=== PATIENT | female | born 2005 | race Caucasian/White ===

== ENCOUNTER 2023-01-21 16:55 | Emergency (ER) | payer MEDICAID, OTHER ==
[~2023-01-21] VITALS: Ht 160 cm; Wt 86.0 kg
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
[2023-01-21 17:45] VITALS: BP 116/74
[2023-01-21] MEDS ORDERED: PNV-9 PO (18:46)
== END 2023-01-21 17:47 | disposition home or self-care (01) ==
LOC: ER 17:00
DX: O9A.212 Injury, poisoning and certain other consequences of external causes complicating pregnancy, second trimester (principal); Z04.3 Encounter for examination and observation following other accident; Z3A.27 27 weeks gestation of pregnancy; V49.50XA Passenger injured in collision with unspecified motor vehicles in traffic accident, initial encounter; Y92.410 Unspecified street and highway as the place of occurrence of the external cause
CPT/HCPCS: 99281

== ENCOUNTER 2023-01-21 17:54 | Outpatient (CLI) | payer MEDICAID ==
[~2023-01-21] VITALS: Ht 161 cm; Wt 86.9 kg
[2023-01-21 18:05] VITALS: BP 134/83
[2023-01-21 18:40] VITALS: BP 111/64
[2023-01-21] MEDS ORDERED: PNV-9 PO (18:46)
[2023-01-21 19:10] VITALS: BP 116/61
[2023-01-21 19:25] VITALS: BP 116/68
== END 2023-01-21 20:14 | disposition home or self-care (01) ==
LOC: WSo 17:54 → LDRP 17:54 → WSo 20:14
PROVIDERS: ATTEND Family Medicine
DX: Z34.92 Encounter for supervision of normal pregnancy, unspecified, second trimester (principal); Z3A.27 27 weeks gestation of pregnancy
CPT/HCPCS: 99213

== ENCOUNTER 2023-04-19 15:17 | Inpatient (IN) | payer MEDICAID ==
[~2023-04-19] VITALS: Ht 162.5 cm; Wt 91.1 kg
[2023-04-19] VITALS (39 sets, daily range): BP systolic 90–139; BP diastolic 49–92
[~2023-04-19 15:17] MED LIST: PNV-9 PO
[2023-04-19 15:54] LABS: BILIRUBIN,URINE NEGATIVE (NEGATIVE); CLARITY,URINE CLEAR; COLOR,URINE YELLOW; GLUCOSE, URINE (UA) NEGATIVE (NEGATIVE); KETONES,URINE NEGATIVE (NEGATIVE); NITRITE,URINE NEGATIVE (NEGATIVE); PH,URINE 7.5 (5-9); PROTEIN,URINE NEGATIVE (NEGATIVE)
[2023-04-19 15:55] LABS: BACTERIA,URINE FEW /HPF; LEUKOCYTE ESTERASE ,URINE 1+ (NEGATIVE); RBC,URINE 0-2 /HPF; SQUAMOUS EPITHELIAL CELL,UR 25-50 /HPF
[2023-04-19] MEDS ORDERED: LACTATED RINGERS 1,000 ML 500 ML IV PRN (16:30)
[2023-04-19] MEDS ORDERED: MINERAL OIL 30 ML UDC TOP PRN (16:30)
[2023-04-19 16:33] LABS: BASOPHILS % (AUTO) 0 % (0-10); EOSINOPHILS % (AUTO) 0 % (0-10); HEMATOCRIT 38 % (35-52); HEMOGLOBIN 12.6 g/dL (11.5-16.0); LYMPHOCYTES # (AUTO) 1.5 10^3/uL (1.0-4.0); LYMPHOCYTES % (AUTO) 13 % (12-44); MEAN CORPUSCULAR HEMOGLOBIN 28 pg (25-34); MEAN CORPUSCULAR HGB CONC 33 g/dL (32-36); MEAN CORPUSCULAR VOLUME 84 fL (80-99); MEAN PLATELET VOLUME 9.9 fL (9.0-12.2); MONOCYTES # (AUTO) 0.8 10^3/uL (0.0-1.0); MONOCYTES % (AUTO) 7 % (0-12); NEUTROPHILS # (AUTO) 9.2 10^3/uL (1.8-7.8); NEUTROPHILS % (AUTO) 78 % (42-75); PLATELET COUNT 277 10^3/uL (130-400); WHITE BLOOD COUNT 11.7 10^3/uL (4.3-11.0)
[2023-04-19] MEDS ORDERED: fentaNYL 2 mcg/ml BUPIVA 0.125 100 ML ONE (16:52)
[2023-04-19] MEDS ORDERED: fentaNYL INJECTION 100 MCG/2 ML VIAL ONE (17:18)
[2023-04-19] MEDS ORDERED: BUPIVACAINE 0.25% 10 ML VIAL ONE (17:18)
[2023-04-19] MEDS: D5 LR 1,000 ML IV SOLN 1,000 ML IV SCH (17:21)
[2023-04-19] MEDS ORDERED: fentaNYL 2 mcg/ml BUPIVA 0.125 100 ML EPI SCH (18:00)
[2023-04-19] MEDS ORDERED: NALOXONE 0.4 MG/ML 1 ML VIAL IV PRN (18:00)
[2023-04-19] MEDS ORDERED: fentaNYL INJECTION 100 MCG/2 ML VIAL INJ ONE (18:00)
[2023-04-19] MEDS ORDERED: LACTATED RINGERS 1,000 ML 1,000 ML IV ONE ×2 (18:00)
[2023-04-19] MEDS ORDERED: ONDANSETRON INJECTION 4 MG/2 ML (SDV) IV PRN (18:00)
[2023-04-19] MEDS ORDERED: FLU QUADRIvalent (6 months+) 60 mcg/0.5 ml 2023-2024 (FLUARIX) IM ONE (18:15)
--- NOTE | 2023-04-19 18:45 | History & Physical-OB/GYN ---
SAMIRA JUAREZ 04/19[birth year]23 1845: OB - Chief Complaint & HPI Date/Time Date of Admission: Date of Admission: Apr 19, 2023 at 16:19 Time Seen by a Provider: 18:15 Chief Complaint/History OB-Reason for Admission/Chief: Onset of Labor Hx : 1 Hx Para: 0 Hx Last Menstrual Period: 07/14/22 Expected Date of Delivery: Apr 20, 2023 Gestational Age in Weeks: 39 Gestational Age in Days: 6 Allergies and Home Medications Allergies Coded Allergies: peach (Verified Allergy, Unknown, 01/21/23) Patient Home Medication List Home Medication List Reviewed: Yes Pnv 119/Iron Fum/Folic Acid ( 19 Tablet) 29 Mg Iron-1 Mg Tablet, 1 EACH PO, (Reported) Entered as Reported by: GRAEME GILES on 01/21/231845 OB - History Hx of Present Care: Yes Ultrasounds: Normal mid trimester US Obstetrical Complications: Other (Oligoghydramnios in 2nd trimester. Resolved.) Medical Complications: None Information Induced Hypertension: No Maternal Gestational Diabetes: No Hemorrhage: No Obstetrical History Hx : 1 Hx Para: 0 Hx # Term Pregnancies: 1 Hx Termination: No Hx Multiple Gestation: No Hx Ectopic : No Hx Stillbirth: No Hx Complication: No Hx Induced Hypertens: No Hx Maternal Gestational Diabet: No Hx Hemorrhage: No Delivery History Hx Dystocia: No Hx Forceps Assisted Delivery: No Hx Vacuum Extraction Assisted: No Hx Placenta Abnormality: No Hx Distress: No Hx Large For Gestational Age I: No Hx Small for Gestational Age I: No Hx Section: No Hx Vaginal Delivery Post C-Sec: No Hx Blood Disorders: No Adverse Rxn to Tranfusion: No Patient Past Medical History none Social History/Family History Alcohol Use: Denies Use Recreational Drug Use: No Smoking Cessation: Former smoker Immunizations Influenza Vaccine Up-to-Date: No; Not Current First/Initial COVID19 Vaccine: YES Second COVID19 Vaccination: YES Hepatitis A: Yes Hepatitis B: Yes Tetanus Booster (TDap): Less than 5yrs Rubella: not immune RPR/VDRL: Negative GBS Status: Negative HBsAG: Negative OB - Admission Exam Physical Exam Vitals: Vital Signs 04/19/23 04/19/23 04/19/23 15:40 17:42 17:45 Temp 36.5 Pulse 111 Resp 18 B/P (MAP) 103/62 (76) Pulse Ox 98 O2 Delivery Room Air Heart: Rhythm Normal Lungs: Clear Abdomen: Gravid Extremities: Other (1+ LE) Reflexes: Normal Cervical Dilatation: 6cm Effacement: 75% Station: -2 Membranes: Intact Heart Rate: 140's Accelerations: No Accelerations Decelerations: Variable Decelerations (1 variable deceleration noted) Short Term Variability: Present Half-Way Variability: Average (6-25) Contractions on Admission: < 5 Minutes Apart Date/Time Contractions Began;: 04/18/23 Intensity: Moderate Zambrano Scoring Tool (Modified) Dilation (cm): >5cm (3) Effacement (%): 80-100% (3) Descent/Station: -2 (1) Cervix Consistency: Soft (2) Cervix Position: Middle/Mid-Position (1) Labs Laboratory Tests Test 04/19/23 15:30 04/19/23 16:10 Range/Units Urine Color YELLOW Urine Clarity CLEAR Urine pH 7.5 5-9 Urine Specific [place] 1.020 1.016-1.022 Urine Protein NEGATIVE NEGATIVE Urine Glucose (UA) NEGATIVE NEGATIVE Urine Ketones NEGATIVE NEGATIVE Urine Nitrite NEGATIVE NEGATIVE Urine Bilirubin NEGATIVE NEGATIVE Urine Urobilinogen 0.2 < = 1.0 MG/DL Urine Leukocyte Esterase 1+ H NEGATIVE Urine RBC (Auto) TRACE H NEGATIVE Urine RBC 0-2 /HPF Urine WBC 5-10 H /HPF Urine Squamous Epithelial Cells 25-50 H /HPF Urine Crystals NONE /LPF Urine Bacteria FEW H /HPF Urine Casts NONE /LPF Urine Mucus SMALL H /LPF Urine Culture Indicated YES White Blood Count 11.7 H 4.3-11.0 10^3/uL Red Blood Count 4.49 3.80-5.11 10^6/uL Hemoglobin 12.6 11.5-16.0 g/dL Hematocrit 38 35-52 % Mean Corpuscular Volume 84 80-99 fL Mean Corpuscular Hemoglobin 28 25-34 pg Mean Corpuscular Hemoglobin Concent 33 32-36 g/dL Red Cell Distribution Width 13.2 10.0-14.5 % Platelet Count 277 130-400 10^3/uL Mean Platelet Volume 9.9 9.0-12.2 fL Immature Granulocyte % (Auto) 1 % Neutrophils (%) (Auto) 78 H 42-75 % Lymphocytes (%) (Auto) 13 12-44 % Monocytes (%) (Auto) 7 0-12 % Eosinophils (%) (Auto) 0 0-10 % Basophils (%) (Auto) 0 0-10 % Neutrophils # (Auto) 9.2 H 1.8-7.8 10^3/uL Lymphocytes # (Auto) 1.5 1.0-4.0 10^3/uL Monocytes # (Auto) 0.8 0.0-1.0 10^3/uL Eosinophils # (Auto) 0.0 0.0-0.3 10^3/uL Basophils # (Auto) 0.0 0.0-0.1 10^3/uL Immature Granulocyte # (Auto) 0.1 0.0-0.1 10^3/uL Syphilis Total Antibody Negative Negative OB - Assessment/Plan/Diagnosis Assessment Assessment: active labor Admission Dx Active labor Admission Status: Inpatient Order (span 2 midnights) Reason for Inpatient Admission: Active labor Plan Plan: Expectant Management JUSTIN GOEL MD 04/19/233: Allergies and Home Medications Allergies Coded Allergies: peach (Verified Allergy, Unknown, 01/21/23) Patient Home Medication List Pnv 119/Iron Fum/Folic Acid ( 19 Tablet) 29 Mg Iron-1 Mg Tablet, 1 EACH PO, (Reported) Entered as Reported by: GRAEME GILES on 01/21/23 1846 Supervisory-Addendum Brief Verification & Attestation Participated in pt care: history, MDM, physical Personally performed: exam, history, MDM, supervision of care Care discussed with: Medical Student Procedures: n/a Results interpretation: Verified all documentation I personally performed or re-performed the history, physical exam and treatment for the E/M. I discussed the case with the Medical Student, and concur with the Medical Student documentation of history, physical exam and treatment plan unless otherwise noted. SAMIRA JUAREZ Apr 19, 2023 18:45 JUSTIN GOEL MD Apr 19, 2023 19:13
--- NOTE | 2023-04-19 19:23 | Labor Progress Note ---
Labor Progress Note Labor Progress Note Date Seen by Provider: Apr 19, 2023 Time Seen by Provider: 19:21 Subjective: Pt denies complaints. Objective: Cervical exam: / Consistency: soft Position: anterior Presentation: vertex heart tones: 140 beats per minute, moderate variability, reactive Tocometer: 4 ctx/10 minutes Assessment/Plan: Diogenes Burks is a 18 /Para 1 / 0,Gestational Age (wks)39 here for labor. AROM done at time of exam per patient request. CEFM/TOCO Anesthesia: epidural Anticipate vaginal delivery. Vitals - Labs Vital Signs - I&O Vital Signs Date Time Temp Pulse Resp B/P (MAP) Pulse Ox O2 Delivery O2 Flow Rate FiO2 04/19/23 18:38 90 18 90/49 (63) 93 Room Air 04/19/23 18:35 79 18 93/50 (64) 100 Room Air 04/19/23 18:30 88 18 99/62 (74) 99 Room Air 04/19/23 18:13 84 18 135/62 (86) Room Air 04/19/23 18:10 86 18 139/79 (99) 98 Room Air 04/19/23 18:06 82 18 122/76 (91) 98 Room Air 04/19/23 18:03 82 18 124/73 (90) 97 Room Air 04/19/23 18:00 93 18 123/71 (88) 97 Room Air 04/19/23 17:57 71 18 122/67 (85) Room Air 04/19/23 17:54 115 18 126/74 (91) Room Air 04/19/23 17:51 108 18 106/71 (83) 97 Room Air 04/19/23 17:48 101 18 111/71 (84) Room Air 04/19/23 17:45 111 18 103/62 (76) Room Air 04/19/23 17:42 81 18 134/77 (96) 98 Room Air 04/19/23 17:39 84 18 119/73 (88) 98 Room Air 04/19/23 17:36 78 18 125/75 (92) 100 Room Air 04/19/23 17:33 92 18 124/77 (93) 100 Room Air 04/19/23 15:40 36.5 86 18 98 Room Air Labs Laboratory Tests 04/19/23 15:30: Urine Color YELLOW, Urine Clarity CLEAR, Urine pH 7.5, Urine Specific [place] 1.020, Urine Protein NEGATIVE, Urine Glucose (UA) NEGATIVE, Urine Ketones NEGATIVE, Urine Nitrite NEGATIVE, Urine Bilirubin NEGATIVE, Urine Urobilinogen 0.2, Urine Leukocyte Esterase 1+H, Urine RBC (Auto) TRACEH, Urine RBC 0-2, Urine WBC 5-10H, Urine Squamous Epithelial Cells 25-50H, Urine Crystals NONE, Urine Bacteria FEWH, Urine Casts NONE, Urine Mucus SMALLH, Urine Culture Indicated YES 04/19/23 16:10: White Blood Count 11.7H, Red Blood Count 4.49, Hemoglobin 12.6, Hematocrit 38, Mean Corpuscular Volume 84, Mean Corpuscular Hemoglobin 28, Mean Corpuscular Hemoglobin Concent 33, Red Cell Distribution Width 13.2, Platelet Count 277, Mean Platelet Volume 9.9, Immature Granulocyte % (Auto) 1, Neutrophils (%) (Auto) 78H, Lymphocytes (%) (Auto) 13, Monocytes (%) (Auto) 7, Eosinophils (%) (Auto) 0, Basophils (%) (Auto) 0, Neutrophils # (Auto) 9.2H, Lymphocytes # (Auto) 1.5, Monocytes # (Auto) 0.8, Eosinophils # (Auto) 0.0, Basophils # (Auto) 0.0, Immature Granulocyte # (Auto) 0.1, Syphilis Total Antibody Negative JUSTIN GOEL MD Apr 19, 2023 19:23
[2023-04-19] MEDS: OXYTOCIN DRIP PRE-MIX 500 ML IV SCH (21:59)
[2023-04-19] MEDS ORDERED: CATHETER FLUSH 10 ML SYR IV SCH (22:00)
[2023-04-20] VITALS (18 sets, daily range): BP systolic 118–158; BP diastolic 63–112
--- NOTE | 2023-04-20 00:06 | Labor Progress Note ---
Labor Progress Note Labor Progress Note Date Seen by Provider: Apr 20, 2023 Time Seen by Provider: 23:55 Subjective: Pt denies complaints. Feeling pressure but not pain with contractions. Objective: Cervical exam: anterior rim/100/0 Consistency: soft Position: anterior Presentation: vertex heart tones: 140s beats per minute, moderate variability, reactive Tocometer: 4-5 ctx/10 minutes Assessment/Plan: Diogenes Burks is a (18 /Para 1 / 0,Gestational Age (wks)39 here for labor. CEFM/TOCO Continue pitocin Anesthesia: epidural Anticipate vaginal delivery. Vitals - Labs Vital Signs - I&O Vital Signs Date Time Temp Pulse Resp B/P (MAP) Pulse Ox O2 Delivery O2 Flow Rate FiO2 04/19/23 23:15 97 18 122/75 (91) Room Air 04/19/23 23:00 88 18 117/73 (88) Room Air 04/19/23 22:45 36.6 116 18 129/77 (94) Room Air 04/19/23 22:30 97 18 129/77 (94) Room Air 04/19/23 22:15 92 18 121/77 (92) Room Air 04/19/23 22:00 106 18 125/87 (100) Room Air 04/19/23 21:30 80 18 134/92 (106) Room Air 04/19/23 21:15 92 18 133/63 (86) Room Air 04/19/23 21:00 80 18 134/85 (101) Room Air 04/19/23 20:45 99 18 133/61 (85) Room Air 04/19/23 20:30 82 18 124/77 (93) Room Air 04/19/23 20:15 75 18 132/88 (103) Room Air 04/19/23 20:00 80 18 123/72 (89) Room Air 04/19/23 19:45 82 18 120/75 (90) Room Air 04/19/23 19:30 84 18 117/70 (86) Room Air 04/19/23 19:20 36.5 84 18 119/73 (88) Room Air 04/19/23 19:00 88 18 111/67 (82) 94 Room Air 04/19/23 18:55 90 18 108/51 (70) 98 Room Air 04/19/23 18:45 97 18 99/58 (72) 100 Room Air 04/19/23 18:40 35.7 04/19/23 18:38 90 18 90/49 (63) 93 Room Air 04/19/23 18:35 79 18 93/50 (64) 100 Room Air 04/19/23 18:30 88 18 99/62 (74) 99 Room Air 04/19/23 18:13 84 18 135/62 (86) Room Air 04/19/23 18:10 86 18 139/79 (99) 98 Room Air 04/19/23 18:06 82 18 122/76 (91) 98 Room Air 04/19/23 18:03 82 18 124/73 (90) 97 Room Air 04/19/23 18:00 93 18 123/71 (88) 97 Room Air 04/19/23 17:57 71 18 122/67 (85) Room Air 04/19/23 17:54 115 18 126/74 (91) Room Air 04/19/23 17:51 108 18 106/71 (83) 97 Room Air 04/19/23 17:48 101 18 111/71 (84) Room Air 04/19/23 17:45 111 18 103/62 (76) Room Air 04/19/23 17:42 81 18 134/77 (96) 98 Room Air 04/19/23 17:39 84 18 119/73 (88) 98 Room Air 04/19/23 17:36 78 18 125/75 (92) 100 Room Air 04/19/23 17:33 92 18 124/77 (93) 100 Room Air 04/19/23 15:40 36.5 86 18 98 Room Air I & O 04/20/23 06:59 Intake Total 1000 ml Balance 1000 ml Labs Laboratory Tests 04/19/23 15:30: Urine Color YELLOW, Urine Clarity CLEAR, Urine pH 7.5, Urine Specific [place] 1.020, Urine Protein NEGATIVE, Urine Glucose (UA) NEGATIVE, Urine Ketones N EGATIVE, Urine Nitrite NEGATIVE, Urine Bilirubin NEGATIVE, Urine Urobilinogen 0.2, Urine Leukocyte Esterase 1+H, Urine RBC (Auto) TRACEH, Urine RBC 0-2, Urine WBC 5-10H, Urine Squamous Epithelial Cells 25-50H, Urine Crystals NONE, Urine Bacteria FEWH, Urine Casts NONE, Urine Mucus SMALLH, Urine Culture Indicated YES 04/19/23 16:10: White Blood Count 11.7H, Red Blood Count 4.49, Hemoglobin 12.6, Hematocrit 38, Mean Corpuscular Volume 84, Mean Corpuscular Hemoglobin 28, Mean Corpuscular Hem oglobin Concent 33, Red Cell Distribution Width 13.2, Platelet Count 277, Mean Platelet Volume 9.9, Immature Granulocyte % (Auto) 1, Neutrophils (%) (Auto) 78H , Lymphocytes (%) (Auto) 13, Monocytes (%) (Auto) 7, Eosinophils (%) (Auto) 0, Basophils (%) (Auto) 0, Neutrophils # (Auto) 9.2H, Lymphocytes # (Auto) 1.5, Monocytes # (Auto) 0.8, Eosinophils # (Auto) 0.0, Basophils # (Auto) 0.0, Immature Granulocyte # (Auto) 0.1, Syphilis Total Antibody Negative JUSTIN GOEL MD Apr 20, 2023 00:06
[2023-04-20] MEDS ORDERED: LIDOCAINE 2% w/EPI 1:200,000 20 ML VIAL ONE (00:51)
[2023-04-20] MEDS: D5 LR 1,000 ML IV SOLN 1,000 ML IV SCH (01:25)
[2023-04-20] MEDS: OXYTOCIN DRIP PRE-MIX 500 ML IV SCH ×3 (01:56→02:25)
[2023-04-20] MEDS ORDERED: MEASLES, MUMPS, RUBELLA VACCINE (MMR) SQ ONE (03:30)
[2023-04-20] MEDS ORDERED: WITCH HAZEL(TUCKS) 40 EA JAR TOP PRN (03:30)
[2023-04-20] MEDS ORDERED: BENZOCAINE/MENTHOL (DERMOPLAST) 56 ML CAN TP PRN (03:30)
--- NOTE | 2023-04-20 03:35 | OB Labor & Delivery Record ---
Vag Delivery Note Vag Delivery Note Date of Delivery: 04/20/23 Preoperative Diagnosis: Diogenes Burks is a (18 /Para 1 / 0,Gestational Age (wks)39with 6 days Postoperative Diagnosis: Same Surgeon/Physician: JUSTIN GOEL [employer] Se[employer] Clerk: Ray Garcia, MS4 Anesthesia: Epidural Delivery Type: Findings: Viable female infant, apgars 2/5/7, weight 6#15 Lacerations: bilateral periurethral, first degree perineal Intact placenta with 3 vessel cord. Nuchal cord x 1, reduced. No body cord or shoulder dystocia Estimated Blood Loss: 150 ml Complications: None Condition: Stable Description of Procedure: The patient is a 18 year old female who presented in active labor. She was admitted and informed consent was obtained. Her labor course was remarkable for augmentation with pitocin. She progressed to complete dilatation and began to push. She was then set up for delivery. The 's head was delivered atraumatically in the HATTIE position. The shoulders and remainder of the 's body were then delivered without difficulty. Upon delivery, the infant was not vigorous so cord was doubly clamped and cut and the infant was handed off to nursery staff. An intact placenta with 3-vessel cord delivered via Fl[place]in and there was found to be minimal bleeding.~ Vigorous fundal massage was performed and the fundus was found to be firm. IV oxytocin was given. Examination of the vagina and perineum revealed a bilateral periurethral laceration and first degree perineal laceration repaired in the usual fashion with 3-0 vicryl rapide suture. Following the repair, sponge, instrument and needle counts were correct. Mom and baby were both in stable condition in the labor suite. Vitals - Labs Vital Signs - I&O Vital Signs Date Time Temp Pulse Resp B/P (MAP) Pulse Ox O2 Delivery O2 Flow Rate FiO2 04/20/23 00:00 90 18 132/88 (103) Room Air 04/19/23 23:45 85 18 126/85 (99) Room Air 04/19/23 23:30 93 18 101/65 (77) Room Air 04/19/23 23:15 97 18 122/75 (91) Room Air 04/19/23 23:00 88 18 117/73 (88) Room Air 04/19/23 22:45 36.6 116 18 129/77 (94) Room Air 04/19/23 22:30 97 18 129/77 (94) Room Air 04/19/23 22:15 92 18 121/77 (92) Room Air 04/19/23 22:00 106 18 125/87 (100) Room Air 04/19/23 21:30 80 18 134/92 (106) Room Air 04/19/23 21:15 92 18 133/63 (86) Room Air 04/19/23 21:00 80 18 134/85 (101) Room Air 04/19/23 20:45 99 18 133/61 (85) Room Air 04/19/23 20:30 82 18 124/77 (93) Room Air 04/19/23 20:15 75 18 132/88 (103) Room Air 04/19/23 20:00 80 18 123/72 (89) Room Air 04/19/23 19:45 82 18 120/75 (90) Room Air 04/19/23 19:30 84 18 117/70 (86) Room Air 04/19/23 19:20 36.5 84 18 119/73 (88) Room Air 04/19/23 19:00 88 18 111/67 (82) 94 Room Air 04/19/23 18:55 90 18 108/51 (70) 98 Room Air 04/19/23 18:45 97 18 99/58 (72) 100 Room Air 04/19/23 18:40 35.7 04/19/23 18:38 90 18 90/49 (63) 93 Room Air 04/19/23 18:35 79 18 93/50 (64) 100 Room Air 04/19/23 18:30 88 18 99/62 (74) 99 Room Air 04/19/23 18:13 84 18 135/62 (86) Room Air 04/19/23 18:10 86 18 139/79 (99) 98 Room Air 04/19/23 18:06 82 18 122/76 (91) 98 Room Air 04/19/23 18:03 82 18 124/73 (90) 97 Room Air 04/19/23 18:00 93 18 123/71 (88) 97 Room Air 04/19/23 17:57 71 18 122/67 (85) Room Air 04/19/23 17:54 115 18 126/74 (91) Room Air 04/19/23 17:51 108 18 106/71 (83) 97 Room Air 04/19/23 17:48 101 18 111/71 (84) Room Air 04/19/23 17:45 111 18 103/62 (76) Room Air 04/19/23 17:42 81 18 134/77 (96) 98 Room Air 04/19/23 17:39 84 18 119/73 (88) 98 Room Air 04/19/23 17:36 78 18 125/75 (92) 100 Room Air 04/19/23 17:33 92 18 124/77 (93) 100 Room Air 04/19/23 15:40 36.5 86 18 98 Room Air I & O 04/20/23 06:59 Intake Total 1000 ml Output Total 0 ml Balance 1000 ml Labs Laboratory Tests 04/19/23 15:30: Urine Color YELLOW, Urine Clarity CLEAR, Urine pH 7.5, Urine Specific [place] 1.020, Urine Protein NEGATIVE, Urine Glucose (UA) NEGATIVE, Urine Ketones NEGATIVE, Urine Nitrite NEGATIVE, Urine Bilirubin NEGATIVE, Urine Urobilinogen 0.2, Urine Leukocyte Esterase 1+H, Urine RBC (Auto) TRACEH, Urine RBC 0-2, Urine WBC 5-10H, Urine Squamous Epithelial Cells 25-50H, Urine Crystals NONE, Urine Bacteria FEWH, Urine Casts NONE, Urine Mucus SMALLH, Urine Culture Indicated YES 04/19/23 16:10: White Blood Count 11.7H, Red Blood Count 4.49, Hemoglobin 12.6, Hematocrit 38, Mean Corpuscular Volume 84, Mean Corpuscular Hemoglobin 28, Mean Corpuscular Hemoglobin Concent 33, Red Cell Distribution Width 13.2, Platelet Count 277, Mean Platelet Volume 9.9, Immature Granulocyte % (Auto) 1, Neutrophils (%) (Auto) 78H, Lymphocytes (%) (Auto) 13, Monocytes (%) (Auto) 7, Eosinophils (%) (Auto) 0, Basophils (%) (Auto) 0, Neutrophils # (Auto) 9.2H, Lymphocytes # (Auto) 1.5, Monocytes # (Auto) 0.8, Eosinophils # (Auto) 0.0, Basophils # (Auto) 0.0, Immature Granulocyte # (Auto) 0.1, Syphilis Total Antibody Negative JUSTIN GOEL MD Apr 20, 2023 03:35
[2023-04-20] MEDS: ACETAMINOPHEN 500 MG TABLET PO SCH ×3 (04:21→21:02)
[2023-04-20] MEDS: IBUPROFEN 600 MG TABLET PO SCH ×4 (04:21→21:47)
[2023-04-20] MEDS ORDERED: CATHETER FLUSH 10 ML SYR IV SCH (06:00)
--- NOTE | 2023-04-20 07:35 | Anesthesia-Regional Post-Op ---
Regional Patient Condition Mental Status: Alert, Oriented x3 Circulation: Same as Pre-Op Headache: Absent Sensation: Full Recovery Motor Block: Absent Post Op Complications Complications None Follow Up Care/Instructions Patient Instructions None needed. Anesthesia/Patient Condition Patient is doing well, no complaints, stable vital signs, no apparent adverse anesthesia problems. No complications reported per nursing. D/C home per [facility] Criteria: Yes AMY STEWART CRNA Apr 20, 2023 07:35
[2023-04-20] MEDS: DOCUSATE SODIUM 100 MG CAPSULE PO SCH ×2 (10:07→21:00)
[2023-04-20] MEDS ORDERED: MEASLES, MUMPS, RUBELLA VACCINE (MMR) ONE (21:49)
[2023-04-20] MEDS ORDERED: FLU QUADRIvalent (6 months+) 60 mcg/0.5 ml 2023-2024 (FLUARIX) IM ONE (21:49)
[2023-04-21 00:10] VITALS: BP 113/65
[2023-04-21] MEDS: IBUPROFEN 600 MG TABLET PO SCH ×2 (04:06→10:39)
[2023-04-21 04:07] VITALS: BP 117/66
[2023-04-21] MEDS: ACETAMINOPHEN 500 MG TABLET PO SCH (05:02)
[2023-04-21 05:50] LABS: BASOPHILS % (AUTO) 0 % (0-10); EOSINOPHILS # (AUTO) 0.1 10^3/uL (0.0-0.3); EOSINOPHILS % (AUTO) 1 % (0-10); HEMATOCRIT 33 % (35-52); HEMOGLOBIN 10.7 g/dL (11.5-16.0); LYMPHOCYTES # (AUTO) 2.2 10^3/uL (1.0-4.0); LYMPHOCYTES % (AUTO) 23 % (12-44); MEAN CORPUSCULAR HEMOGLOBIN 28 pg (25-34); MEAN CORPUSCULAR HGB CONC 33 g/dL (32-36); MEAN CORPUSCULAR VOLUME 85 fL (80-99); MEAN PLATELET VOLUME 10.1 fL (9.0-12.2); MONOCYTES # (AUTO) 0.8 10^3/uL (0.0-1.0); MONOCYTES % (AUTO) 9 % (0-12); NEUTROPHILS # (AUTO) 6.1 10^3/uL (1.8-7.8); NEUTROPHILS % (AUTO) 65 % (42-75); PLATELET COUNT 226 10^3/uL (130-400); WHITE BLOOD COUNT 9.3 10^3/uL (4.3-11.0)
[2023-04-21 08:00] VITALS: BP 130/91
[2023-04-21] MEDS ORDERED: RHO(D) IMMUNE GLOBULIN 300 MCG/2 ML SYRINGE IM/IV ONE (08:15)
[2023-04-21] MEDS: DOCUSATE SODIUM 100 MG CAPSULE PO SCH (10:33)
[2023-04-21] MEDS ORDERED: IBUP-844 PO (11:31)
--- NOTE | 2023-04-21 11:35 | Short Stay Summary ---
Discharge Summary Hospital Course Final Diagnosis: see Hospital Course Hospital Course Date of Admission: Apr 19, 2023 at 16:19 Admission Diagnosis : 1. G1 at 39w6d with spontaneous labor Family Physician/Provider: Loreta Jiang MD Date of Discharge: 04/21/23 Discharge Diagnosis: 1. G1 at 39w6d with spontaneous labor s/p 04/20/23 2. Rh negative, infant Rh positive Hospital Course: Routine course. Rhogam given 04/21/23 Labs and Pending Lab Test: Laboratory Tests 04/21/23 05:22: White Blood Count 9.3, Red Blood Count 3.86, Hemoglobin 10.7L, Hematocrit 33L, Mean Corpuscular Volume 85, Mean Corpuscular Hemoglobin 28, Mean Corpuscular Hemoglobin Concent 33, Red Cell Distribution Width 13.3, Platelet Count 226, Mean Platelet Volume 10.1, Immature Granulocyte % (Auto) 1, Neutrophils (%) (Auto) 65, Lymphocytes (%) (Auto) 23, Monocytes (%) (Auto) 9, Eosinophils (%) (Auto) 1, Basophils (%) (Auto) 0, Neutrophils # (Auto) 6.1, Lymphocytes # (Auto) 2.2, Monocytes # (Auto) 0.8, Eosinophils # (Auto) 0.1, Basophils # (Auto) 0.0, Immature Granulocyte # (Auto) 0.1 Microbiology 04/19/23 Urine Culture - Final, Complete See Comments Home Meds Active Ibu (Ibuprofen) 600 Mg Tablet 600 Mg PO Q6H PRN Reported 19 Tablet (Pnv 119/Iron Fum/Folic Acid) 29 Mg Iron-1 Mg Tablet 1 Each PO Assessment/Pt Instructions Follow up with Dr. Jiang in 6wk Discharge Instructions Discharge Diet: No Restrictions Discharge Physical Examination General Appearance: Alert, Oriented X3, Cooperative Psych/Mental Status: Mental Status NL, Mood NL Allergies: Coded Allergies: peach (Verified Allergy, Unknown, 01/21/23) Discharge Summary Date of Admission Apr 19, 2023 at 16:19 Date of Discharge BRYN LEONE DO Apr 21, 2023 11:35
[2023-04-21 12:00] VITALS: BP 132/87
[2023-04-21 13:58] VITALS: BP 130/82
== END 2023-04-21 14:35 | disposition home or self-care (01) | DRG 807 ==
LOC: LDRP 15:17 → WSo 15:17 → LDRP 16:19
PROVIDERS: ADMIT Family Medicine; ATTEND Family Medicine
PROC: 10E0XZZ Delivery of Products of Conception, External Approach (ICD-10-PCS; principal; 2023-04-20)
PROC: 0HQ9XZZ Repair Perineum Skin, External Approach (ICD-10-PCS; 2023-04-20)
PROC: 0UQMXZZ Repair Vulva, External Approach (ICD-10-PCS; 2023-04-20)
DX: O71.82 Other specified trauma to perineum and vulva (principal); Z37.0 Single live birth; O70.0 First degree perineal laceration during delivery; Z3A.39 39 weeks gestation of pregnancy; O69.81X0 Labor and delivery complicated by cord around neck, without compression, not applicable or unspecified; Z23 Encounter for immunization
CPT/HCPCS: 36415; 81000; 83033; 85025; 86780; 86850; 86900; 86901; 87088; 90686; 90707; 99212